=== PATIENT | male | born 1990 | race Caucasian/White ===

== ENCOUNTER 2017-12-30 17:51 | Emergency (ER) | payer BC ==
[2017-12-30 18:51] LABS: ACETAMINOPHEN 0.4 ug/mL (10.0-30.0); ALBUMIN 3.8 g/dL (3.4-5.0); ALKALINE PHOSPHATASE 41 U/L (46-116); ALT (SGPT) 22 U/L (10-68); BILIRUBIN - TOTAL 1.03 mg/dL (0.2-1.3); CALC OSMOLALITY 287 mosm/kg (275-300); CALCIUM 7.9 mg/dL (8.5-10.1); CARBON DIOXIDE 27.1 mmol/L (21.0-32.0); CHLORIDE - SERUM 110 mmol/L (98-107); CREATININE - SERUM 0.8 mg/dL (0.6-1.3); GLUCOSE 88 mg/dL (74-106); POTASSIUM - SERUM 3.5 mmol/L (3.5-5.1); PROTEIN - SERUM 6.2 g/dL (6.4-8.2); SODIUM 145 mmol/L (136-145); UREA NITROGEN 13 mg/dL (7-18); eGFR NON AFRICAN AMERICAN > 90 mL/min (90-120)
== END 2017-12-30 18:37 | disposition left against medical advice (07) ==
LOC: D.ER 17:51
PROVIDERS: Nurse Practitioner Family
DX: T50.995A Adverse effect of other drugs, medicaments and biological substances, initial encounter (principal); Y92.410 Unspecified street and highway as the place of occurrence of the external cause

== ENCOUNTER 2018-01-01 06:05 | Emergency (ER) | payer MEDICAID ==
[2018-01-01 06:45] LABS: APPEARANCE CLEAR (CLEAR); COLOR YELLOW (YELLOW)
[2018-01-01 06:46] LABS: BILIRUBIN NEGATIVE (NEGATIVE); GLUCOSE NEGATIVE (NEGATIVE); KETONE MODERATE mg/dL (NEGATIVE); NITRITE NEGATIVE (NEGATIVE); PROTEIN TRACE mg/dL (NEGATIVE); UROBILINOGEN NORMAL (NORMAL)
[2018-01-01 06:47] LABS: UDS - AMPHET NEGATIVE QUAL (NEGATIVE); UDS - BARB NEGATIVE QUAL (NEGATIVE); UDS - BENZO NEGATIVE QUAL (NEGATIVE); UDS - COCAINE NEGATIVE QUAL (NEGATIVE); UDS - OPIATE NEGATIVE QUAL (NEGATIVE); UDS - PCP NEGATIVE QUAL (NEGATIVE); UDS - THC POSITIVE QUAL (NEGATIVE)
[2018-01-01 06:48] LABS: BACTERIA FEW /hpf (NONE SEEN); CALCIUM OXALATE CRYSTALS RARE /hpf (NONE SEEN); EPITHELIAL CELLS 0-5 /hpf (0-5); MUCUS >1+ /lpf (NONE SEEN); RED CELLS - URINE 0-5 /hpf (0-5); WHITE CELLS - URINE 0-5 /hpf (0-5)
[2018-01-01 07:02] LABS: BASOPHILS 0.2 % (0-2); EOSINOPHILS 0.5 % (0-7); HEMOGLOBIN 13.9 g/dL (13.5-17.5); IMMATURE GRANULOCYTES 0.1 % (0-5); LYMPHOCYTES 13.9 % (15-50); MCH 31.4 pg (26.0-34.0); MCHC 35.6 g/dL (31.0-37.0); MEAN PLATELET VOLUME 10.2 fL (7.4-10.4); MONOCYTES 8.3 % (2-11); PLATELET COUNT 178 10x3/uL (130-400); RBC 4.43 10x6/uL (4.20-6.10); RDW 12.2 % (11.5-14.5); WBC 9.5 10x3/uL (4.8-10.8)
[2018-01-01 07:16] LABS: ALBUMIN 4.2 g/dL (3.4-5.0); ALKALINE PHOSPHATASE 48 U/L (46-116); CALCIUM 8.7 mg/dL (8.5-10.1); CARBON DIOXIDE 26.4 mmol/L (21.0-32.0); CHLORIDE - SERUM 103 mmol/L (98-107); CREATININE - SERUM 0.8 mg/dL (0.6-1.3); GLUCOSE 95 mg/dL (74-106); PROTEIN - SERUM 7.2 g/dL (6.4-8.2); SODIUM 140 mmol/L (136-145); eGFR NON AFRICAN AMERICAN > 90 mL/min (90-120)
[2018-01-01 07:23] LABS: ALT (SGPT) 38 U/L (10-68); CALC OSMOLALITY 280 mosm/kg (275-300); UREA NITROGEN 18 mg/dL (7-18)
== END 2018-01-01 08:00 | disposition home or self-care (01) ==
LOC: D.ER 06:05
PROVIDERS: Family Medicine
DX: F12.10 Cannabis abuse, uncomplicated (principal); R53.83 Other fatigue

== ENCOUNTER 2018-01-02 11:04 | Emergency (ER) | payer MEDICAID | END 2018-01-02 12:20 | disposition home or self-care (01) | LOC: D.ER 11:04 | DX: S60.512A Abrasion of left hand, initial encounter (principal); S60.511A Abrasion of right hand, initial encounter; W26.9XXA Contact with unspecified sharp object(s), initial encounter; Y93.89 Activity, other specified; Y92.410 Unspecified street and highway as the place of occurrence of the external cause; F17.200 Nicotine dependence, unspecified, uncomplicated ==